=== PATIENT | male | born 1965 | race Caucasian/White ===

== ENCOUNTER 2017-04-29 18:22 | Emergency (ER) | payer OTHER, BC ==
[~2017-04-29] VITALS: Ht 175.3 cm; Wt 95.2 kg
--- NOTE | ~2017-04-29 | CR169 ---
[facility] A Service of [facility] RADIOLOGY TEXT RESULTS PATIENT: BEVERLY CHA LOCATION: [facility] : 65 UNIT #: [id number] AGE: [address]: Lazara Armas MD SEX: M ORDER DR: [id number] [facility] [address]. [place], [place] [address] [id number] E MR#: [id number] Acc #: [id number] NAME: BEVERLY CHA : 1965 SEX: M STUDY DATE/TIME: 04/29/2017 18:53 UNIT: FLOYD ROOM: STUDY DESCRIPTION: CR Knee 2 Views Lt Attending Physician: Lazara Armas M.D. Ordering Physician: Lazara Armas M.D. Primary Care Physician: Primary Care Physician No MEDICAL IMAGING REPORT This report is preliminary unless electronic signature is present EXAM Left knee. HISTORY Knee pain and swelling after falling earlier today. TECHNIQUE Three views of the left knee were obtained. FINDINGS Three projections of the knee shows smooth articular anatomy without indication of fracture or dislocation at the major weight-bearing surface of the knee. There is no indication of radiopaque foreign body about the knee surface or joint effusion. IMPRESSION Normal knee. Dictated by... Nicolas Zarco M.D. THIS IS AN ELECTRONICALLY VERIFIED REPORT Nicolas Zarco M.D. at 05/01/2017 4:54 PM ADRIANA/kellen TD: 04/30/2017 09:21 JOB #: [id number] MEDICAL IMAGING REPORT Page 1 of 1 COPY
[~2017-04-29 18:22] MED LIST: AMOXICILLIN PO; ANTIVERT PO
== END 2017-04-29 22:26 | disposition home or self-care (01) ==
LOC: CED 18:22
DX: S83.8X2A Sprain of other specified parts of left knee, initial encounter (principal); X58.XXXA Exposure to other specified factors, initial encounter
CPT/HCPCS: 29505; 73560; 90471; 90715; 99283

== ENCOUNTER → 2017-05-13 | Outpatient (CLI) | payer OTHER, BC ==
--- NOTE | ~2017-05-13 | EKG ---
PATIENT: JORGE CHA UNIT #: [id number] Ventricular Rate: 108 BPM Atrial Rate: 108 BPM P-R Interval: 148 ms QRS Duration: 82 ms Q-T Interval: 350 ms QTC Calculation(Bezet): 469 ms P Pettigrew: 43 degrees Calculated T Pettigrew: 19 degrees Diagnosis Line: Sinus tachycardia Diagnosis Line: Otherwise normal ECG Diagnosis Line: When compared with ECG of 09-NOV-2009 01:22, Diagnosis Line: No significant change was found Diagnosis Line: Confirmed by RAYA EDWARDS MD ([id number]) on Diagnosis Line: 05/16/2017 10:47:05 AM INTERPRETING MD: JERRY KOEHLER
[2017-05-13 12:31] LABS: HEMATOCRIT 42.1 % (38.0-50.0); MEAN CELL VOLUME 88.3 FL (83-96); MEAN CORPUSCULAR HEMOGLOBIN 29.4 PG (28-34); MEAN CORPUSCULAR HGB CONC 33.3 g/dL (30-36); MEAN PLATELET VOLUME 6.7 FL (6.5-11.5); RED BLOOD COUNT 4.77 X10e (3.90-5.60); RED CELL DISTRIBUTION WIDTH 13.3 % (11.0-15.5); WHITE BLOOD COUNT 9.7 X10e3 (4.0-10.5)
[2017-05-13 13:49] LABS: CALCIUM SERUM 9.9 mg/dL (8.4-10.2); CREATININE SERUM 0.8 mg/dL (0.6-1.4); GLOM FILT RATE Estimated 103.5 mL/min (>60); POTASSIUM 4.7 mmol/L (3.5-5.1)
== END | disposition home or self-care (01) ==
LOC: CLAB 11:52
PROVIDERS: Orthopaedic Surgery
DX: Z01.818 Encounter for other preprocedural examination (principal); S83.419A Sprain of medial collateral ligament of unspecified knee, initial encounter
CPT/HCPCS: 36415; 80048; 85027; 93005